=== PATIENT | female | born 1960 | race Caucasian/White ===

== ENCOUNTER 2023-01-05 08:20 | Outpatient (AMB) | payer BC, SELFPAY ==
--- NOTE | 2023-01-05 15:27 | MHC.OFFVISWM ---
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 Allergies No Known Allergies Allergy (Verified 01/05/23 18:09) Medication List - Last Reconciled 01/05/23 by Kei Villa MD aspirin 81 mg PO DAILY cholecalciferol (vitamin D3) 50 mcg PO DAILY turmeric mg PO HPI TV RN OCCUPATIONAL HEALTH HPI Details Start time: 4pm, End time: 4.20pm ?I spent 15 minutes speaking with the patient on the phone plus an additional 5 minutes reviewing and updating records for a total of 20 minutes HPI Comments History of Present Illness Details Complains of an abdominal pain and she had a recent ultrasound that suggests the presence of a >5cm ovarian mass Assessment & Plan Assessment & Plan (1) Ovarian mass: Code(s): N83.8 - Other noninflammatory disorders of ovary, fallopian tube and broad ligament Plan: Plan for an MRI pelvis to assess the ovarian mass. Plan is discussed with the patient. Orders: Orders MR pelvis wo/w con Today N83.8 - Other noninflammatory disorders of ovary, fallopian tube and broad ligament Telehealth Telehealth Location of provider rendering services: practice address Location of patient: address on file Patient Identification confirmed using: Name, : Yes Telehealth method: voice only Patient verbally consented to treatment: Yes Patient verbally consented to billing insurance company: Yes Patient informed of any privacy concerns related to visit: Yes Minutes spent on Phone/Video with Pt.: 20 Coding Level of Care Code Tele Est Pt Level 3 (87426) Diagnoses Ovarian mass N83.8 Time Spent (min) 20
== END 2023-01-05 18:13 | disposition home or self-care (01) ==
LOC: HO.HBS 08:20
PROVIDERS: Visit Provider Surgery
DX: N83.8 Other noninflammatory disorders of ovary, fallopian tube and broad ligament (principal)
CPT/HCPCS: 99442

== ENCOUNTER → 2023-01-05 08:20 | Outpatient (BNVA) | payer BC, SELFPAY | PROVIDERS: Visit Provider Surgery ==

== ENCOUNTER 2023-01-09 08:44 | Outpatient (REF) | payer BC, SELFPAY ==
--- NOTE | ~2023-01-09 | MR_ITS ---
EXAMINATION: MR PELVIS WITHOUT AND WITH CONTRAST CLINICAL INFORMATION: Left-sided pelvic pain COMPARISON: None available. TECHNIQUE: Examination was performed in a high field strength MRI scanner. Pre-contrast multiplanar multisequence MR imaging of the pelvis was performed without IV contrast enhancement. Post-contrast axial T1 weighted fat suppressed images of the pelvis were obtained after IV injection of 8 mL Gadavist. FINDINGS: Uterus is anteverted, with normal endometrial stripe. A left anterior adnexal multiseptated T2 hyperintense nonenhancing cystic lesion with very thin internal septations is seen, measuring 4.4 cm in AP diameter, 5.4 cm in vertical height. No right adnexal lesion could be seen. Urinary bladder is well filled with urine. Pelvic fat plane is clean. No pelvic ascites is seen. No abnormally enlarged iliac or inguinal lymph nodes are found. The pelvis and bilateral hips are intact. Bilateral femoral heads and necks show normal signal without focal lesion. No abnormal joint effusion can be seen. The visualized bony pelvis show normal signal. Bilateral sacroiliac joints also appear unremarkable. MR/MR pelvis wo/w con IMPRESSION: A 6 cm left anterior adnexal multilocular cyst is seen with no enhancing solid tissue. Findings are compatible with O RADS 3, low risk lesion with positive predictive value for malignancy about 5%.
== END 2023-01-09 08:45 | disposition home or self-care (01) ==
LOC: HO.MRI 08:44
PROVIDERS: Visit Provider Surgery
DX: N83.8 Other noninflammatory disorders of ovary, fallopian tube and broad ligament (principal)
CPT/HCPCS: 72197